=== PATIENT | male | born 1975 | race Two or more races ===

== ENCOUNTER 2016-12-16 12:00 | Inpatient (IN) | payer BC, OTHER ==
[~2016-12-16] VITALS: Ht 175.3 cm; Wt 86.8 kg
[2017-08-03 09:48] VITALS: BMI 29.6
[2017-08-04] VITALS (18 sets, daily range): BP systolic 105–141; BP diastolic 45–97; PULSE 64–94; RESP 16–20; Ht 175.3 cm; Wt 86.8 kg
--- NOTE | 2017-08-04 05:32 | HPN ---
Date/Time of Note Date/Time of Note DATE: 08/04/17 TIME: 05:32 Interval H&P Admission Note Pt. seen H&P reviewed: No system changes LO CASTILLO MD Aug 04, 2017 05:32
[2017-08-04] MEDS ORDERED: SOD CHLORIDE 0.9% 100 ML, TRANEXAMIC ACID 3,000 MG IRR SCH ×2 (06:00)
[2017-08-04] MEDS ORDERED: DEXAMETHASONE 1 MG TAB PO SCH (06:00)
[2017-08-04] MEDS ORDERED: BUPIVACAINE 0.5% (SDV) 30 ML, morphine SULFATE (PF) 8 MG, EPINEPHrine 0.3 MG, KETOROLAC... IRR SCH ×7 (06:00)
[2017-08-04] MEDS ORDERED: GABAPENTIN 300 MG CAP PO SCH ×2 (06:00→21:00)
[2017-08-04] MEDS ORDERED: traMADol 50 MG TAB PO SCH (06:00)
[2017-08-04] MEDS ORDERED: TRANEXAMIC ACID 1,000 MG in SOD CHLORIDE 0.9% 100 ML IVPB SCH (06:00)
[2017-08-04] MEDS ORDERED: VANCOMYCIN 1 GM (PMX) 250 ML IVPB SCH (06:00)
[2017-08-04] MEDS ORDERED: CA CHLORIDE 10% 10 ML SYRINGE ONE (06:47)
[2017-08-04] MEDS ORDERED: THROMBIN 5000 UNIT VIAL ONE (06:47)
[2017-08-04] MEDS ORDERED: POLYMYXIN/BACITRACIN 1L IRRIG ONE (06:47)
[2017-08-04] MEDS ORDERED: PROPOFOL 100 ML ONE ×2 (06:52→09:22)
[2017-08-04] MEDS ORDERED: morphine SULFATE/PF (10 MG/10 ML) INJ ONE (06:52)
[2017-08-04] MEDS ORDERED: MIDAZOLAM 1 MG/ML 2 ML INJ ONE ×2 (06:54)
[2017-08-04] MEDS ORDERED: ROCURONIUM 50 MG INJ ONE (07:00)
[2017-08-04] MEDS ORDERED: EPHEDrine SULFATE 50 MG/5 ML SYG ONE (07:00)
[2017-08-04] MEDS ORDERED: ACETAMINOPHEN 1000 MG/100 ML IVPB ONE (07:00)
[2017-08-04] MEDS ORDERED: ONDANSETRON 4 MG INJ ONE (07:30)
[2017-08-04] MEDS ORDERED: KETOROLAC 30 MG INJ ONE (07:30)
[2017-08-04] MEDS ORDERED: METOCLOPRAMIDE 10 MG INJ ONE (07:30)
[2017-08-04] MEDS ORDERED: DEXAMETHASONE 4 MG/ML 1 ML INJ ONE (07:30)
[2017-08-04] MEDS ORDERED: PHENYLephrine (100 MCG/ML) 5ML SYG ONE ×2 (07:46→09:17)
[2017-08-04] MEDS ORDERED: MEPERIDINE 25 MG INJ IV PRN (08:30)
[2017-08-04] MEDS ORDERED: EPHEDrine SULFATE 50 MG/5 ML SYG IV PRN (08:30)
[2017-08-04] MEDS ORDERED: OXYCODONE/ACETAMINOPHEN (5/325) TAB PO PRN ×4 (08:30→09:30)
[2017-08-04] MEDS ORDERED: ONDANSETRON 4 MG INJ IV PRN ×2 (08:30→09:30)
[2017-08-04] MEDS ORDERED: NALBUPHINE HCL (10 MG/1 ML) INJ IV PRN (08:30)
[2017-08-04] MEDS ORDERED: METOCLOPRAMIDE 10 MG INJ IV PRN (08:30)
[2017-08-04] MEDS ORDERED: FENTAnyl 50 MCG/ML VIAL IV PRN ×3 (08:30)
[2017-08-04] MEDS ORDERED: HYDROmorphONE (0.2 MG/ML) 10ML SYG IV PRN ×3 (08:30)
[2017-08-04] MEDS ORDERED: DIPHENHYDRAMINE 50 MG INJ IV PRN ×3 (08:30→09:30)
[2017-08-04] MEDS ORDERED: NALOXONE (0.4 MG/ML) INJ IV PRN (08:30)
[2017-08-04] MEDS ORDERED: LABETALOL HCL 20MG INJ IV PRN (08:30)
[2017-08-04] MEDS ORDERED: NEOSTIGMINE 3 MG/3 ML SYRINGE ONE (09:21)
[2017-08-04] MEDS ORDERED: GLYCOPYRROLATE 0.4 MG INJ ONE (09:21)
--- NOTE | 2017-08-04 09:27 | OPR ---
Date/Time of Note Date/Time of Note DATE: 08/04/17 TIME: 09:24 Operative Report Procedure Date: Aug 04, 2017 Preoperative Diagnosis Left hip arthritis Postoperative Diagnosis Left hip primary arthritis Operation/Procedure Performed Left total hip arthroplasty Surgeon see signature line [employer] Developer Haroon Becerril MD Anesthesia Type: general Estimated Blood Loss: 200 - 250 ml's Transfusion none Specimen Femoral head Grafts/Implants none Complications none Pt Condition Post Procedure: stable Disposition: PACU Procedure Description ARBITRATOR SURGEON: Haroon Becerril MD was asked to be present at my request as a result of the complexity associated with this procedure including positioning of the extremity, positioning of the instrumentation and protection of the neurovascular structures. In my opinion, the assistance offered by a surgical forceps fabricator is insufficient and Dr. Becerril should be compensated for his time. PROCEDURE IN DETAIL: Following the administration of general endotracheal anesthesia supplemented with a spinal anesthetic, the patient was placed in the supine position. The bilateral lower extremities were then prepped and draped in the usual sterile fashion. A stage driver radiograph was obtained for preliminary limb length and femoral size as well as acetabular size. A lateral incision was then made exposing the tensor fascia the fascia was incised the tensor was retracted laterally and the vessels were cauterized. The anterior capsule was then identified and prepared. A capsulectomy was then performed and the femoral head was then evaluated. Severe arthritic changes were noted. A femoral head cut was then made in the appropriate degree of version and inclination. The acetabulum was then exposed and a capsulectomy and labrectomy were completed. The central portion was then entered and serially reamed up to the size 55 mm. A Depuy Louann cup which is 56 mm in size with a standard liner was then fit into position with solid fixation. A 30 mm screw was used for additional fixation. Attention was then directed to the femur, the femur was exposed and prepared. The canal was entered and serially reamed up to the size 5. A size 5 Depuy stem was then inserted with solid fixation. A +5 femoral head, which was Oxinium was then inserted. The leg was taken through full range of motion with no evident instability. In addition, radiographs revealed excellent position with reproduction of the limb lengths within a millimeter. The wound was irrigated thoroughly. The wound was then closed in layers and a Prenio for the final cover. This was watertight. Estimated blood loss was procedure was 250 cc. Postoperative radiographs will be obtained in the recovery room. TRANSFUSION REQUIRED: LO Freeman MD Aug 04, 2017 09:27
[2017-08-04] MEDS ORDERED: TRANEXAMIC ACID 1,000 MG in SOD CHLORIDE 0.9% 100 ML IV ONE ×4 (09:30)
[2017-08-04] MEDS ORDERED: MAGNESIUM HYDROXIDE 30ML CUP PO PRN (09:30)
[2017-08-04] MEDS ORDERED: KETOROLAC 15 MG INJ IV PRN (09:30)
[2017-08-04] MEDS ORDERED: morphine 4 MG/ML VIAL IV PRN (09:30)
[2017-08-04] MEDS ORDERED: ZOLPIDEM 5 MG TAB PO PRN (09:30)
[2017-08-04] MEDS ORDERED: morphine 2 MG INJ IV PRN (09:30)
[2017-08-04] MEDS ORDERED: ACETAMINOPHEN 500 MG TAB PO PRN (09:30)
--- NOTE | 2017-08-04 10:23 | PDOCDIS ---
Discharge Instructions DIAGNOSIS Discharge Diagnosis Primary hip arthritis CONDITION Patient Condition: Good HOME CARE INSTRUCTIONS: Diet Instructions: Regular ACTIVITY: Activity Restrictions: Slowly Increase Activity Keep Limb Elevated Bathing Restrictions: Shower FOLLOW UP/APPOINTMENTS Follow-up Plan 2 weeks in the office SCHOOL/WORK RELEASE May return to School/Work with: With Restrictions School/Work Release Comment: No hip extension for 6 weeks LO CASTILLO MD Aug 04, 2017 10:23
--- NOTE | 2017-08-04 10:43 | RADRPT ---
PROCEDURE: Intraoperative imaging of the left hip with fluoroscopy. CLINICAL INDICATION: Left hip pain. Intraoperative. TECHNIQUE: 6 images of the left hip were obtained in the operating room with an image intensifier. No radiologist was in attendance. 0.5 minutes of fluoroscopy time was used. COMPARISON: No prior study is available for comparison. FINDINGS: Images demonstrate placement of a total left hip arthroplasty. There is a Rutherford catheter in the blad kirill. IMPRESSION: 1. Satisfactory intraoperative imaging of the left hip. RPTAT: QQ .Issac Silva MD, MD Date Time Electronically viewed and signed by .Issac Silva MD, on 08/04/2017 10:43 .R/
--- NOTE | 2017-08-04 11:27 | RADRPT ---
PROCEDURE: XR Pelvis. CLINICAL INDICATION: Pelvic pain. Postop. TECHNIQUE: Single frontal view. COMPARISON: Intraoperative imaging done earlier the same day. FINDINGS: There is a left hip total arthroplasty. This appears satisfactory with no fracture, dislocation or loosening. There is no lytic lesion. Gas is present in the soft tissues of the left hip. The right hip is normal. There is a Rutherford catheter in the bladder. IMPRESSION: 1. Satisfactory postoperative appearance of the left hip. 2. Rutherford catheter in the bladder. 3. Unremarkable right hip. RPTAT: QQ .Issac Silva MD, Date Time Electronically viewed and signed by .Issac Silva MD, on 08/04/2017 11:26 .R/
[2017-08-04 11:36] LABS: BASOPHILS % 0.1 % (0.0-2.0); EOSINOPHILS % 0.1 % (0.0-7.0); HEMATOCRIT 40.6 % (42.0-52.0); HEMOGLOBIN 13.5 g/dl (14.0-18.0); LYMPHOCYTES % 11.2 % (15.0-51.0); MEAN CORPUSCULAR HEMOGLOBIN 29.2 pg (29.0-33.0); MEAN CORPUSCULAR HGB CONC 33.3 g/dl (32.0-37.0); MEAN CORPUSCULAR VOLUME 87.9 fl (82.0-101.0); MEAN PLATELET VOLUME 9.2 fl (7.4-10.4); MONOCYTE # 0.1 10^3/ul (0.3-0.9); MONOCYTES % 1.4 % (0.0-11.0); NEUTROPHIL # 7.5 10^3/ul (1.6-7.5); NEUTROPHILS % 86.3 % (39.0-77.0); PLATELET COUNT 236 10^3/UL (140-415); RED BLOOD COUNT 4.62 10^6/ul (4.70-6.10); RED CELL DISTRIBUTION WIDTH 13.6 % (11.5-14.5); WHITE BLOOD COUNT 8.7 10^3/ul (4.8-10.8)
[2017-08-04] MEDS: DEXAMETHASONE 2 MG TAB PO SCH ×3 (12:42→23:24)
[2017-08-04] MEDS: LACTATED RINGER'S 1,000 ML IV SCH ×2 (12:43→19:27)
[2017-08-04] MEDS: VANCOMYCIN 500MG/NS (PMX) 100 ML IVPB SCH (17:34)
[2017-08-04] MEDS: SENNA/DOCUSATE NA (8.6MG/50MG) TAB PO SCH (20:33)
[2017-08-05] MEDS: LACTATED RINGER'S 1,000 ML IV SCH (01:36)
[2017-08-05 05:09] LABS: BASOPHILS % 0.1 % (0.0-2.0); HEMATOCRIT 34.4 % (42.0-52.0); HEMOGLOBIN 11.6 g/dl (14.0-18.0); LYMPHOCYTES # 1.9 10^3/ul (0.8-2.9); MEAN CORPUSCULAR HEMOGLOBIN 28.9 pg (29.0-33.0); MEAN CORPUSCULAR HGB CONC 33.7 g/dl (32.0-37.0); MEAN CORPUSCULAR VOLUME 85.6 fl (82.0-101.0); MEAN PLATELET VOLUME 9.6 fl (7.4-10.4); MONOCYTE # 1.3 10^3/ul (0.3-0.9); NEUTROPHIL # 11.3 10^3/ul (1.6-7.5); NEUTROPHILS % 77.1 % (39.0-77.0); PLATELET COUNT 223 10^3/UL (140-415); RED BLOOD COUNT 4.02 10^6/ul (4.70-6.10); RED CELL DISTRIBUTION WIDTH 13.2 % (11.5-14.5); WHITE BLOOD COUNT 14.6 10^3/ul (4.8-10.8)
[2017-08-05 05:30] VITALS: BP 112/66; PULSE 78; RESP 18
[2017-08-05] MEDS: VANCOMYCIN 500MG/NS (PMX) 100 ML IVPB SCH (05:57)
[2017-08-05] MEDS: DEXAMETHASONE 2 MG TAB PO SCH (05:57)
[2017-08-05] MEDS: SENNA/DOCUSATE NA (8.6MG/50MG) TAB PO SCH (08:24)
[2017-08-05 08:25] VITALS: BP 121/81; RESP 18
[2017-08-05] MEDS ORDERED: ASPIRIN 81 MG TAB PO SCH (09:00)
--- NOTE | 2017-08-05 12:42 | DS ---
Date/Time of Note Date/Time of Note DATE: 08/05/17 TIME: 12:41 Discharge Summary Admission/Discharge Info Admit Date/Time Aug 04, 2017 at 05:27 Discharge Date/Time 08/05/17 Discharge Diagnosis Primary hip arthritis Patient Condition: Good Procedures RLeft THR Hx of Present Illness Pain and stiffness for many years Hospital Course Surgery in AM, followed by PT the next day. Discharged after independent Home Meds No Active Prescriptions or Reported Meds Follow-up Plan 2 weeks in the office Primary Care Provider Not On Staff Doctor Pending Labs Laboratory Tests Test 08/05/17 04:35 White Blood Count 14.610^3/ul (4.8-10.8) Red Blood Count 4.0210^6/ul (4.70-6.10) Hemoglobin 11.6g/dl (14.0-18.0) Hematocrit 34.4% (42.0-52.0) Mean Corpuscular Volume 85.6fl (82.0-101.0) Mean Corpuscular Hemoglobin 28.9pg (29.0-33.0) Mean Corpuscular Hemoglobin Concent 33.7g/dl (32.0-37.0) Red Cell Distribution Width 13.2% (11.5-14.5) Platelet Count 40554^3/UL (140-415) Mean Platelet Volume 9.6fl (7.4-10.4) Neutrophils % 77.1% (39.0-77.0) Lymphocytes % 13.0% (15.0-51.0) Monocytes % 9.0% (0.0-11.0) Eosinophils % 0.0% (0.0-7.0) Basophils % 0.1% (0.0-2.0) Nucleated Red Blood Cells % 0.0/100WBC (0.0-0.0) Neutrophils # 11.310^3/ul (1.6-7.5) Lymphocytes # 1.910^3/ul (0.8-2.9) Monocytes # 1.310^3/ul (0.3-0.9) Eosinophils # 0.010^3/ul (0.0-0.5) Basophils # 0.010^3/ul (0.0-0.1) Nucleated Red Blood Cells # 0.010^3/ul (0.0-0.0) LO CASTILLO MD Aug 05, 2017 12:42
[2017-08-05 14:21] VITALS: BP 120/80; RESP 18
--- NOTE | 2017-08-05 16:18 | OPPN ---
Date/Time of Note Date/Time of Note DATE: 08/05/17 TIME: 16:18 Post-Anesthesia Notes Post-Anesthesia Note Last documented vital signs Vital Signs Date Time Temp Pulse Resp B/P Pulse Ox O2 Delivery O2 Flow Rate FiO2 08/05/17 14:21 97.8 88 18 120/80 94 08/05/17 05:30 Room Air 08/04/17 10:10 8.0 Activity: WNL Respiratory function: WNL Cardiovascular function: WNL Mental status: Baseline Pain reasonably controlled: Yes Hydration appropriate: Yes Nausea/Vomiting absent: Yes ERICH CARTY MD Aug 05, 2017 16:18
== END 2017-08-05 14:20 | disposition home or self-care (01) | DRG 470 ==
LOC: EDSTATUS 01-13 12:00 → REC 08-04 05:27 → MS1 08-04 11:40
PROVIDERS: ADMIT Orthopaedic Surgery; ATTEND Orthopaedic Surgery
PROC: 0SRB04A Replacement of Left Hip Joint with Ceramic on Polyethylene Synthetic Substitute, Uncemented, Open Approach (ICD-10-PCS; principal; 2017-08-04 07:00)
DX: M16.12 Unilateral primary osteoarthritis, left hip (principal)
CPT/HCPCS: 72170; 73530; 85025; 86850; 86900; 86901; 86999; 87086; 97116; 97163; C1713; C1776; J0131; J1100; J1885; J2250; J2274; J2370; J2405; J2710; J2765; J3370; J7120